=== PATIENT | male | born 1975 | race Two or more races ===

== ENCOUNTER 2022-11-23 02:38 | Emergency (ER) | payer OTHER ==
[~2022-11-23] VITALS: Ht 177.8 cm; Wt 104.3 kg
[~2022-11-23 02:38] MED LIST: KETO10TA2 PO; MEDROLPACK PO; ORPH100T PO
== END 2022-11-23 07:37 | disposition home or self-care (01) ==
LOC: ER
DX: J06.9 Acute upper respiratory infection, unspecified (principal); I10 Essential (primary) hypertension; Z20.822 Contact with and (suspected) exposure to COVID-19
CPT/HCPCS: 36415; 96372; 99283; J1885